=== PATIENT | female | born 1985 | race Caucasian/White ===

== ENCOUNTER → 2024-01-15 | Day surgery (SDC) | payer MEDICAID ==
[~2024-01-15] VITALS: Ht 154.9 cm; Wt 77.1 kg
[~2024-01-15] MED LIST: ATOR10TA PO; ATROPINE SULFATE 0.4MG/ML VIAL IV PRN; BUPIVACAINE HCL/PF 0.5% (5MG/ML) 10ML ONE; FENTANYL CITRATE/PF 50MCG/ML 2ML VIAL ONE; GLYCOPYRROLATE 0.2 MG/ML 2ML VIAL ONE; HYDRALAZINE 20MG/ML VIAL IV PRN; HYDROMORPHONE HCL/PF 1MG/ML INJ IV PRN; HYDROMORPHONE HCL/PF 1MG/ML INJ ONE; LABETALOL 5MG/ML 4ML INJ IV PRN; LACTATED RINGERS 1,000 ML IV SCH; METF-414 PO; NEOSTIGMINE METHYLSULFATE 1MG/ML 10 ML VIAL ONE; OMEG1200 PO; ONDANSETRON HCL 4MG/2ML INJ IV PRN; ONDANSETRON HCL 4MG/2ML INJ ONE; ROCURONIUM BROMIDE 10MG/ML VIAL 5ML IV ONE; SKIN ADHESIVE 0.7 GM EA TOP ONE
[2024-01-15] MEDS: SODIUM CHLORIDE 0.9% 1,000 ML IV SCH (08:51)
[2024-01-15 09:03] LABS: UCG SCREEN NEGATIVE
[2024-01-15 14:46] VITALS: BP 118/70; PULSE 86; RESP 19
[2024-01-15] MEDS: ACETAMINOPHEN WITH CODEINE 300/30MG TABLET PO NR (14:46)
[2024-01-15] MEDS: ONDANSETRON HCL 4MG/2ML INJ IM NR (14:48)
== END | disposition home or self-care (01) ==
LOC: OR 07:15
PROVIDERS: ATTEND Surgery
DX: K80.10 Calculus of gallbladder with chronic cholecystitis without obstruction (principal); E78.5 Hyperlipidemia, unspecified; E11.9 Type 2 diabetes mellitus without complications; Z79.84 Long term (current) use of oral hypoglycemic drugs; Z79.899 Other long term (current) drug therapy; Z98.890 Other specified postprocedural states
CPT/HCPCS: 47562; 81025; 82962; 88304; J3010; J3490 ×3; J2405; J1170; J7030; J2710